=== PATIENT | female | born 1955 | race Caucasian/White ===

== ENCOUNTER 2018-02-22 13:20 | Outpatient (CLI) | payer BC ==
[2018-02-22 13:19] VITALS: BP 148/69
[~2018-02-22 13:20] MED LIST: HYDR-3965 PO
[2018-02-22 17:14] VITALS: BP 148/69
== END 2018-02-22 14:45 | disposition home or self-care (01) ==
LOC: ORTHO 13:20
PROVIDERS: ATTEND Nurse Practitioner Family
DX: S52.502A Unspecified fracture of the lower end of left radius, initial encounter for closed fracture (principal); B19.20 Unspecified viral hepatitis C without hepatic coma; E78.00 Pure hypercholesterolemia, unspecified; F41.9 Anxiety disorder, unspecified; G89.18 Other acute postprocedural pain; G89.29 Other chronic pain; X58.XXXA Exposure to other specified factors, initial encounter; Y93.89 Activity, other specified; Y92.89 Other specified places as the place of occurrence of the external cause; Y99.8 Other external cause status
CPT/HCPCS: 73100; 99215